=== PATIENT | female | born 1985 | race Caucasian/White ===

== ENCOUNTER 2019-05-16 01:28 | Emergency (ER) | payer SELFPAY ==
[~2019-05-16] VITALS: Ht 157.5 cm; Wt 56.7 kg
[2019-05-16] MEDS ORDERED: TRAMADOL HCL 50 MG TAB PO ONE (01:45)
--- NOTE | 2019-05-16 02:50 | Diagnostic Imaging Report ---
KNEE RIGHT THREE VIEWS - 3 views HISTORY: Pain COMPARISON: None available. FINDINGS: Bones: No acute displaced fracture. Osseous alignment is within normal limits. Joints: The joint spaces are well-maintained. Soft tissues: The soft tissues appear unremarkable. IMPRESSION: No acute radiographic abnormality. Signed by: Dr. Espinoza Patrick MD on 05/16/2019 2:46 AM
[2019-05-16 02:59] VITALS: BP 176/94
== END 2019-05-16 03:33 | disposition home or self-care (01) ==
LOC: ER 01:28
DX: S83.421A Sprain of lateral collateral ligament of right knee, initial encounter (principal); S80.01XA Contusion of right knee, initial encounter; W06.XXXA Fall from bed, initial encounter; Y93.84 Activity, sleeping; Y92.003 Bedroom of unspecified non-institutional (private) residence as the place of occurrence of the external cause
CPT/HCPCS: 99283